=== PATIENT | male | born 1995 | race Caucasian/White ===

== ENCOUNTER 2019-05-29 04:04 | Emergency (ER) | payer BC, OTHER ==
[~2019-05-29] VITALS: Ht 177 cm; Wt 90.0 kg
[2019-05-29] MEDS ORDERED: KETOROLAC 60 MG/2 ML VIAL IM ONE (04:15)
--- NOTE | 2019-05-29 04:21 | ED Upper Extremity ---
General Stated Complaint: R HAND/KNUCKLES SWOLLEN, PAIN Source: patient, other Exam Limitations: no limitations History of Present Illness Date Seen by Provider: May 29, 2019 Time Seen by Provider: 04:04 Initial Comments Patient resists ER by private conveyance with a complaint of right hand swelling and pain where he mashed it all move in her fridge while at work earlier. He has not had anything for the pain but would take something. He has no other significant medical history or history of injury to this hand. No surgeries on the hand. No loss of feeling but he does have difficulty extending his fingers o r completely flexing them on the fourth and fifth digits. Allergies and Home Medications Allergies Coded Allergies: No Known Drug Allergies (Unverified , 05/29/19) Patient Home Medication List Home Medication List Reviewed: Yes Review of Systems Constitutional: No chills, No diaphoresis EENTM: No ear discharge, No ear pain Respiratory: No cough, No short of breath Cardiovascular: No chest pain, No edema All Other Systems Reviewed Negative Unless Noted: Yes Past Asroymr-Owmqyq-Onxzim Hx Patient Social History Alcohol Use: Occasionally Uses Recreational Drug Use: No Smoking Status: Never a Smoker Recent Foreign Travel: No Contact w/Someone Who Travel: No Physical Exam Vital Signs Capillary Refill : Height, Weight, BMI Height: '" Weight: lbs. oz. kg; BMI Method: General Appearance: WD/WN, mild distress HEENT: PERRL/EOMI, normal ENT inspection Neck: full range of motion, normal inspection Cardiovascular: normal peripheral pulses, regular rate, rhythm, no edema Respiratory: no respiratory distress, no accessory muscle use Wrist: Yes normal inspection, Yes non-tender, Yes no evidence of injury, Yes normal ROM Hand: Right, limited ROM (lacks about 15 of extension of the fourth and fifth digits and only about 5 of flexion. ), soft tissue tenderness (swelling, ecchymoses over the dorsal fourth and fifth metacarpal with deformity.), swelli ng (no pain over the anatomic snuffbox) Neurologic/Tendon: normal sensation, normal motor functions, responds to pain Neurologic/Psychiatric: alert, normal mood/affect, oriented x 3 Skin: normal color, warm/dry Progress/Results/Core Measures Results/Orders My Orders Orders - ALISIA CARDONA Hand, Right, 3 Views (05/29/19 04:12) Ketorolac Injection (Toradol Injection) (05/29/19 04:15) Medications Given in ED Current Medications Medications Dose Ordered Sig/Alexandro Route Start Time Stop Time Status Last Admin Dose Admin Ketorolac Tromethamine 60 mg ONCE ONCE IM 05/29/19 04:15 05/29/19 04:16 DC 05/29/19 04:23 60 MG Progress Progress Note : Time: 04:19 Progress Note Suspect boxer fracture. We'll get a x-ray of his right hand 2-3 views. Toradol for his pain and ice pack. Diagnostic Imaging Diagonstic Imaging: Xray Plain Films/CT/US/NM/MRI: hand (r) Comments Mid shaft mildly angulated, modestly displaced, closed fracture of the fifth metacarpal. Reviewed: Reviewed by Me Departure Impression Primary Impression: Boxer's fracture Qualified Codes: S62.339A - Displaced fracture of neck of unspecified metacarpal bone, initial encounter for closed fracture Disposition: HOME, SELF-CARE Condition: Stable Departure-Patient Inst. Decision time for Depature: 04:49 Referrals: MARITZA TELLEZ MD (PCP/Family) Primary Care Physician Patient Instructions: Boxer's Fracture (DC) Add. Discharge Instructions: Wear the next 2 weeks. You may take it off to bathe but you should wear it while sleeping. Call Dr. Hernandez, orthopedic surgery and request follow-up in the next 1 week. Ice pack for 20 minutes every 4 hours while awake. Tylenol thousand grams every 8 hours as needed for pain. Ibuprofen 800 mg every 8 hours as needed for pain. Hydrocodone one tablet every 6 hours as needed for breakthrough pain. It will cause drowsiness and should not be mixed with alcohol. May cause constipation. Do not operate heavy machinery or drive under the influence of hydrocodone. Elevate the hand above the level of your heart. Do not use your hand for the first 1-2 weeks. Олег wrap to give gentle compression of the hand to decrease swelling and pain at first 1-2 weeks. Work/School Note: Work Release Form Date Seen in the Emergency Department: May 29, 2019 Return to Work: May 30, 2019 Restrictions: Need Release from Doctor Other Restrictions Listed Below: Do not lift push or pull with the right hand until released by the surgeon. ALISIA CARDONA May 29, 2019 04:21 POS
[2019-05-29] MEDS ORDERED: RX-HYDROCODONE/APAP 5/325 MG #4 TAB PK PO PRN (05:00)
[2019-05-29 05:08] VITALS: BP 133/86
--- NOTE | 2019-05-29 05:34 | Diagnostic Imaging Report ---
INDICATION: Swelling and pain status post injury. COMPARISON: None FINDINGS: 3 radiographic views of the right hand were obtained and show acute appearing transverse oriented fracture of the distal shaft of the 5th metacarpal. There is moderate angulation with the apex of the fracture projecting posteriorly. There is no intra-articular extension. No other acute osseous abnormalities are seen. Joint spaces are maintained. No unexpected radiopaque foreign bodies are identified. IMPRESSION: 1. Acute 5th metacarpal fracture as described above. Dictated by: Dictated on workstation # [id number]
== END 2019-05-29 05:08 | disposition home or self-care (01) ==
LOC: EDUNIT# 04:04 → ER 04:06
DX: S62.336A Displaced fracture of neck of fifth metacarpal bone, right hand, initial encounter for closed fracture (principal); W22.8XXA Striking against or struck by other objects, initial encounter; Y92.59 Other trade areas as the place of occurrence of the external cause
CPT/HCPCS: 29105; 73130